=== PATIENT | female | born 1990 | race Caucasian/White ===

== ENCOUNTER → 2018-09-02 | Outpatient (REF) | payer OTHER ==
[~2018-09-02] MED LIST: KEFL500C17 PO
== END ==
LOC: M LAB REF 17:30
PROVIDERS: ATTEND Internal Medicine Endocrinology, Diabetes & Metabolism
DX: E04.1 Nontoxic single thyroid nodule (principal)

== ENCOUNTER 2018-09-18 12:16 | Emergency (ER) | payer OTHER ==
[~2018-09-18] VITALS: Ht 160 cm; Wt 63.2 kg
[2018-09-18 13:03] LABS: BASO % 0.3 % (0.0-1.0); EOS # 0.1 10^3/uL (0.0-0.50); EOS % 1.5 % (0.0-3.0); HEMATOCRIT 38.4 % (36.0-47.0); HEMOGLOBIN 12.8 g/dl (12.0-15.5); LYMPH # 2.2 10^3/uL (1.5-6.5); LYMPH % 23.4 % (24.0-44.0); MEAN CORPUSCULAR HEMOGLOBIN 31.3 pg (27.0-33.0); MEAN CORPUSCULAR HGB CONC 33.3 g/dl (32.0-36.5); MEAN CORPUSCULAR VOLUME 93.9 fl (80.0-96.0); MONO # 0.9 10^3/uL (0.0-0.8); MONO % 9.8 % (0.0-5.0); NEUTROPHILS % 64.8 % (36.0-66.0); PLATELET COUNT, AUTOMATED 244 10^3/uL (150-450); RED BLOOD COUNT 4.09 10^6/uL (4.00-5.40); WHITE BLOOD COUNT 9.3 10^3/uL (4.0-10.0)
[2018-09-18 13:45] LABS: HCG, SERUM QUANTITATIVE 1991 MIU/ML
[2018-09-18] MEDS: NS 1,000 ML IV SCH ×2 (13:53→14:00)
--- NOTE | 2018-09-18 13:59 | REP ---
Clinical: Vaginal bleeding for dating and viability. Technique: Transabdominal and transvaginal first trimester obstetrical ultrasound with color Doppler evaluation. Findings: Anteverted uterus measures 9.6 x 4.1 x 5.3 cm. Endometrial complex measures 4.8 mm thickness. No intrauterine is identified. Bilateral ovaries are normal in appearance and vascularity without torsion or evidence for corpus luteal cyst. Right ovary measures 2.5 x 2.0 x 2.2 cm; RI 0.59. Left ovary measures 2.2 x 1.4 x 2.1 cm; RI 0.53. No pelvic fluid or adnexal mass lesion. Impression: No intrauterine identified. No decidual reaction or corpus luteal cyst noted. Differential diagnosis would include very early as well as missed spontaneous . Ectopic less likely but cannot be excluded. Electronically Signed by Mukund Retana MD 09/18/2018 01:51 P
[2018-09-18 14:17] LABS: ALT/SGPT 16 U/L (12-78); BILIRUBIN,DIRECT 0.1 MG/DL (0.0-0.2); BILIRUBIN,TOTAL 0.3 MG/DL (0.2-1.0); BLOOD UREA NITROGEN 14 MG/DL (7-18); CALCIUM LEVEL 9.1 MG/DL (8.5-10.1); CARBON DIOXIDE LEVEL 27 MEQ/L (21-32); CHLORIDE LEVEL 105 MEQ/L (98-107); CREATININE FOR GFR 0.85 MG/DL (0.55-1.30); GLOMERULAR FILTRATION RATE > 60.0 (>60); GLUCOSE, FASTING 75 MG/DL (70-100); LIPASE 118 U/L (73-393); POTASSIUM SERUM 4.2 MEQ/L (3.5-5.1); SODIUM LEVEL 139 MEQ/L (136-145); TOTAL PROTEIN 7.7 GM/DL (6.4-8.2)
[2018-09-18 15:26] VITALS: BP 114/57
[2018-09-18] MEDS ORDERED: RHOGAM 300 MCG (1500 IU) INJ (J2790) IM ONE (15:30)
[2018-09-18] MEDS ORDERED: KEFL500C17 PO (15:36)
== END 2018-09-18 16:15 | disposition home or self-care (01) ==
LOC: M ED 12:16
DX: O20.0 Threatened abortion (principal); O20.9 Hemorrhage in early pregnancy, unspecified; O23.41 Unspecified infection of urinary tract in pregnancy, first trimester; O26.891 Other specified pregnancy related conditions, first trimester; M54.5 Low back pain; O99.281 Endocrine, nutritional and metabolic diseases complicating pregnancy, first trimester; E06.3 Autoimmune thyroiditis; O99.011 Anemia complicating pregnancy, first trimester; D50.9 Iron deficiency anemia, unspecified; M06.9 Rheumatoid arthritis, unspecified; Z3A.01 Less than 8 weeks gestation of pregnancy; Z88.2 Allergy status to sulfonamides; Z91.040 Latex allergy status
CPT/HCPCS: 76801; 76817; 80048; 80076; 81001; 83690; 84702; 85025; 86850; 86870; 86900; 86901; 93976; 96372; 99284; J2790

== ENCOUNTER → 2018-09-27 | Outpatient (CLI) | payer OTHER ==
[2018-09-27 17:24] LABS: FREE T4 0.78 NG/DL (0.76-1.46); THYROID STIMULATING HORMONE 2.26 uIU/ML (0.358-3.740)
== END ==
LOC: M LAB 16:06
PROVIDERS: ATTEND Nurse Practitioner Family
DX: E06.3 Autoimmune thyroiditis (principal)

== ENCOUNTER → 2018-10-12 | Outpatient (CLI) | payer OTHER ==
[2018-10-12 12:45] LABS: FREE T4 0.82 NG/DL (0.76-1.46); THYROID STIMULATING HORMONE 1.91 uIU/ML (0.358-3.740)
== END ==
LOC: M LAB 10:49
PROVIDERS: ATTEND Internal Medicine Endocrinology, Diabetes & Metabolism
DX: E06.3 Autoimmune thyroiditis (principal); E04.1 Nontoxic single thyroid nodule

== ENCOUNTER → 2019-11-28 | Outpatient (REF) | payer OTHER ==
[2020-02-15 06:11] LABS: FREE T4 1.43 NG/DL (0.76-1.46); THYROID STIMULATING HORMONE 0.018 uIU/ML (0.358-3.740)
== END ==
LOC: M LABSMT 09:56
PROVIDERS: ATTEND Nurse Practitioner Family
DX: E06.3 Autoimmune thyroiditis (principal)

== ENCOUNTER → 2020-03-02 | Outpatient (CLI) | payer OTHER ==
[2020-03-02 15:51] LABS: FREE T4 0.71 NG/DL (0.76-1.46); THYROID PEROXIDASE ANTIBODY > 1300.0 U/ML (<60.0)
== END ==
LOC: M PLALAB 12:52
PROVIDERS: ATTEND Internal Medicine Endocrinology, Diabetes & Metabolism
DX: E06.3 Autoimmune thyroiditis (principal)

== ENCOUNTER → 2020-04-30 | Outpatient (CLI) | payer OTHER ==
[2020-04-30 17:08] LABS: FREE T4 0.98 NG/DL (0.76-1.46); THYROID STIMULATING HORMONE 0.982 uIU/ML (0.358-3.740)
== END ==
LOC: M PLALAB 12:11
PROVIDERS: ATTEND Nurse Practitioner Family
DX: E06.3 Autoimmune thyroiditis (principal)